=== PATIENT | male | born 1975 | race Caucasian/White ===

== ENCOUNTER 2017-11-16 10:16 | Outpatient (CLI) | payer OTHER ==
--- NOTE | 2017-11-16 11:19 | RAD ---
THREE VIEWS LUMBAR SPINE: History: Low back pain. FINDINGS: Lateral, flexion and extension views lumbar spine obtained. Five non-rib bearing lumbar vertebra are seen. No significant evidence of marcos or retrolisthesis is seen on flexion or extension views. Anterior osteophytes seen in the L3 level with smaller anterior osteophytes seen at L2 and L4. Disc spaces are well maintained. IMPRESSION: Unremarkable lateral as well as flexion and extension views of the lumbar spine. POS: RORY
== END 2017-11-16 10:17 | disposition home or self-care (01) ==
LOC: TBSIIMAG 10:16
PROVIDERS: ATTEND Neurological Surgery
DX: M54.5 Low back pain (principal)
CPT/HCPCS: 72100